=== PATIENT | female | born 1995 | race Hispanic/Latino ===

== ENCOUNTER → 2018-01-02 | Day surgery (SDC) | payer OTHER ==
[~2018-01-02] MED LIST: ADDERALL 15 MG15 MG; AMOXICILLIN500 MG PO; ANTACID PO; FENTANYL CITRATE/PF 100MCG/2 ML INJ ONE; FLAGYL500 MG PO; HYOSCYAMINE SULFATE 0.5 MG/ML INJ ONE; LORTAB 7.5-5001 EACH PO; MIDAZOLAM HCL 2 MG/2 ML VIAL ONE; PANTOPRAZOLE SO40 MG PO; PROPOFOL IV EMULSION 10 MG/ML 50 ML VIAL ONE; XANAX0.25 MG PO
[2018-01-02 10:20] VITALS: BP 112/87
--- NOTE | 2018-01-02 12:30 | Operative Report ---
DATE OF PROCEDURE: January 02, 2018 REFERRING PHYSICIAN: Dr. Juan Marroquin PROCEDURES PERFORMED 1. Esophagogastroduodenoscopy with biopsies. 2. Colonoscopy with biopsies. INDICATIONS FOR EGD: Acid reflux. Upper abdominal pain. History of tarry stools. INDICATIONS FOR COLONOSCOPY: Chronic diarrhea, history of bright red blood per rectum. MEDICATION: Patient was done under MAC. Please see anesthesiologist's note. PROCEDURE: With the patient in the left lateral decubitus position, the flexible fiberoptic Olympus gastroscope was introduced into the esophagus under direct visualization without any difficulty. There was some patchy erythema noted in the distal esophagus. The scope was then advanced with ease into the stomach. Mucosa overlying the antrum and the body revealed some patchy erythema and low-grade to moderate edema, and biopsies were obtained and sent to stain for H. pylori. Pylorus appeared to be of normal contour and shape. It was intubated with ease, and the scope was advanced all the way to the 2nd portion of the duodenum. Biopsies were obtained to rule out sprue. The scope was then withdrawn back into the stomach and retroflexed. The mucosa overlying the fundus and cardia appeared to be within normal limits. The scope was then straightened out. It was subsequently withdrawn. Patient tolerated the procedure well. IMPRESSION 1. Distal esophagitis, mild. 2. Gastritis, biopsied. Biopsies sent to stain for H. pylori. 3. Rule out sprue. PLAN: Follow up histology. Increase Protonix to 40 mg 1 p.o. a.c. b.i.d. The patient was then turned around. After adequate lubrication of the anal canal, a flexible fiberoptic Olympus colonoscope was inserted into the rectum with ease and advanced all the way to the cecum. The mucosa overlying the cecum appeared to be within normal limits. The ileocecal valve was intubated, and the scope was advanced into the terminal ileum. Biopsies were obtained. The scope was then withdrawn back into the colon. It was then withdrawn slowly, and the mucosa overlying the ascending and transverse as well as the descending appeared to be within normal limits. Mucosa overlying the distal descending, sigmoid and rectum revealed some patchy areas of erythema. The scope was then retroflexed into the distal rectum, and the area around the dentate line appeared to be within normal limits. The scope was then straightened out. It was subsequently withdrawn after securing an adequate stool specimen that was sent for the appropriate stool studies. Patient tolerated the procedure well. IMPRESSION: Mild, patchy, left-sided colitis. PLAN: Follow up histology. Follow up stool studies. Start Colestid 1 gram p.o. daily and VSL #3 one p.o. daily. Job#: [id number] cc:JUAN MARROQUIN MD
[2018-01-02 12:40] LABS: C DIFFICILE TOXIN A&B AMP PROB NEGATIVE (NEGATIVE); WBC,FECAL (FECAL LACTOFERRIN) NEGATIVE (NEGATIVE)
== END | disposition home or self-care (01) ==
LOC: OR 07:34
PROVIDERS: ATTEND Internal Medicine Gastroenterology
DX: R10.10 Upper abdominal pain, unspecified (principal); K21.0 Gastro-esophageal reflux disease with esophagitis; K29.50 Unspecified chronic gastritis without bleeding; K51.50 Left sided colitis without complications; K52.9 Noninfective gastroenteritis and colitis, unspecified; K31.9 Disease of stomach and duodenum, unspecified; K62.5 Hemorrhage of anus and rectum; F41.9 Anxiety disorder, unspecified; E66.9 Obesity, unspecified
CPT/HCPCS: 36415; 43239; 45380; 83630; 83993; 84702; 87045; 87177; 87328; 87493; J1980; J2250; 45378